=== PATIENT | female | born 1965 | race African-American/Black ===

== ENCOUNTER 2018-10-22 08:54 | Emergency (ER) | payer MEDICAID ==
[~2018-10-22] VITALS: Ht 172.7 cm; Wt 104.3 kg
[2018-10-22] MEDS ORDERED: AMLODIPINE BESYL5 MG ORAL (09:03)
[2018-10-22] MEDS ORDERED: LISINOPRIL20 MG ORAL (09:03)
[2018-10-22] MEDS ORDERED: LEVOTHYROXINE125 MCG ORAL (09:03)
[2018-10-22 09:11] VITALS: BP 159/91
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
[2018-10-22] MEDS ORDERED: IBUPROFEN600 MG ORAL (09:36)
[2018-10-22] MEDS ORDERED: ROBAXIN-750750 MG PO (09:36)
[2018-10-22] MEDS ORDERED: LIDODERM700 M1 TOPIC (09:36)
--- NOTE | 2018-10-22 09:40 | NUR ---
ER DISCHARGE NOTE: Patient is cleared to be discharged per ERMD, pt is aox4, on room air, with stable vital signs. pt was given dc and prescription instructions, pt was able to verbalize understanding, pt is able to ambulate with steady gait. pt took all belongings.
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
[2018-10-22 10:10] VITALS: BP 159/91
== END 2018-10-22 09:50 | disposition home or self-care (01) ==
LOC: EMR 09:20
DX: S16.1XXA Strain of muscle, fascia and tendon at neck level, initial encounter (principal); V43.62XA Car passenger injured in collision with other type car in traffic accident, initial encounter; Y92.410 Unspecified street and highway as the place of occurrence of the external cause; I10 Essential (primary) hypertension
CPT/HCPCS: 99282

== ENCOUNTER 2020-04-09 14:30 | Outpatient (CLI) | payer MEDICAID ==
[~2020-04-09] VITALS: Ht 172.7 cm; Wt 108.9 kg
[~2020-04-09 14:30] MED LIST: AMLODIPINE BESYL5 MG ORAL; IBUPROFEN600 MG ORAL; LEVOTHYROXINE125 MCG ORAL; LIDODERM700 M1 TOPIC; LISINOPRIL20 MG ORAL; ROBAXIN-750750 MG PO
[2020-04-09 14:46] VITALS: BP 122/74
--- NOTE | 2020-04-10 13:00 | Consultation ---
DATE OF CONSULTATION: 04/09/2020 CONSULTING PHYSICIAN: Jacob Urias MD CHIEF COMPLAINT: Referral for abnormal liver function tests, gallstones, screening colonoscopy needs. PAST MEDICAL HISTORY: 1. Hypertension. 2. Hypothyroidism. 3. Colonic polyps. PAST SURGICAL HISTORY: and tubal ligation. MEDICATIONS: Please see medication reconciliation list. SOCIAL HISTORY: The patient occasionally drinks. Quit cigarettes about 2014. No drug abuse. ALLERGIES: No known drug allergies. REVIEW OF SYSTEMS: Positive for a colonoscopy 5 years ago which revealed polyps. IMAGING STUDIES: The patient had abdominal ultrasound, which showed fatty liver and gallstones. The patient had a hepatitis panel, which was negative. ASSESSMENT AND PLAN: 1. Fatty liver. 2. Abnormal liver function tests. 3. Gallstones. 4. History of colonic polyp. PLAN: 1. Repeat colonoscopy given polyp 5 years ago. 2. In terms of abnormal liver function tests, most probably secondary to fatty liver, we do not have the labs, so we are going to try to get it from office. The patient needs to be followed for that. 3. In terms of gallstone, the patient at this time is symptomatic. We will monitor. I want to thank for this kind referral. Jacob Urias M.D. DR: JM JOB#: [id number] CC:
[2020-04-10] MEDS ORDERED: ASPIRIN EC81 MG ORAL (14:51)
[2020-04-10] MEDS ORDERED: MILK THISTLE140 M1 PO (14:51)
== END 2020-04-09 16:30 | disposition home or self-care (01) ==
LOC: PAN 14:30
DX: K76.0 Fatty (change of) liver, not elsewhere classified (principal); I10 Essential (primary) hypertension; E03.9 Hypothyroidism, unspecified; Z86.010 Personal history of colon polyps; R94.5 Abnormal results of liver function studies; Z87.891 Personal history of nicotine dependence
CPT/HCPCS: G0463